=== PATIENT | male | born 1970 | race Caucasian/White ===

== ENCOUNTER 2019-04-10 17:20 | Emergency (ER) | payer OTHER ==
[~2019-04-10] VITALS: Ht 167.6 cm; Wt 104.3 kg
[2019-04-10 17:43] VITALS: BP 118/80; Ht 167.6 cm; Wt 104.3 kg
== END 2019-04-10 20:30 | disposition home or self-care (01) ==
LOC: ED 17:20
DX: J06.9 Acute upper respiratory infection, unspecified (principal); E78.5 Hyperlipidemia, unspecified; N18.9 Chronic kidney disease, unspecified
CPT/HCPCS: Q0092